=== PATIENT | male | born 1965 | race Caucasian/White ===

== ENCOUNTER 2018-01-12 07:56 | Emergency (ER) | payer OTHER, SELFPAY ==
[2018-01-12 07:58] VITALS: BP 179/90; PULSE 60; RESP 17; TEMP 37.2; O2SAT 95; BMI 37.6
--- NOTE | 2018-01-12 08:17 | ED.VISSUMM ---
- ER Visit Summary Date of Service: 01/12/18 Chief Complaint: Rectal bleeding History of Present Illness: The patient is a 52 M history of hypertension. He has never had GI bleeds. States has a lot of abdominal cramping as a young man he had a colonoscopy at that time which is more than 20 years ago which was negative. States last night he thought he ate explored egg. He had multiple episodes of diarrhea. Said this morning when he went up to go the bathroom he realized it was just bright red blood. Last night when he was going the bathroom it was in the dark and he said he never checked to see what was in the toilet. He denies ever having a GI bleed. He is on no blood thinners. He denies any vomiting or hematemesis. Otherwise he has been healthy lately. Physical Examination: Middle-aged male no acute distress. Vital signs are stable afebrile. H EENT exam unremarkable. Neck nontender no lymphadenopathy. Lungs clear to auscultation bilaterally. Heart regular rhythm no murmur. Abdomen soft, nontender, nondistended normal bowel sounds no peritoneal signs. Rectal exam externally unremarkable. No external hemorrhoids or masses. Internally no masses appreciated. No significant tenderness. There was no stool and no blood. Moving all 4 extremities. Neurovascular intact. No edema. Back exam nontender. Neurologic exam unremarkable. Test Results: H&H is 15.9 and 47. Normal platelets. Chemistry panel unremarkable BUN 29 creatinine 1. Normal gap. Emergency Department Course and Treatment: Patient with reported rectal bleeding. Treatment Plan: Repeat exam at 09 40 patient is doing well. He standing up walking about the room. He and I discussed test results. He has lower GI bleeding it appears to be stable. He did have another episode while in the ER. He absolutely does not want to be admitted. Given that he is not orthostatically hypotensive. He is clinically looks well and his hemoglobin is 15.9 I am okay with him being discharged to home to follow-up next week with your general surgeon or Dr. Nell CALDWELL to get colonoscopy. He knows return if he is feeling worse or has continued or worse bleeding. Disposition: Discharge Impression: Rectal bleeding of uncertain etiology This note was generated with [employer] dictation software. It may contain incorrect words, spelling, and punctuation that were not noted in review of the chart prior to signing ED Disposition - Plan for ED Patient: Chief Complaint: GI Bleed Referrals: Galileo Eaton DO [Primary Care Provider] -
[2018-01-12 08:46] LABS: Absolute Lymphocyte Count 1.15 X10^3/ul (0.83-4.51); Absolute Neutrophil Count 7.6 X10^3/uL (2.0-7.7); Basophil# 0.02 X10^3/uL; Basophil% 0.2 % (0-1); Eosinophil# 0.04 X10^3/uL; Eosinophils% 0.4 % (0-5); Hematocrit 47.5 % (40-54); Hemoglobin 15.9 g/dl (13.0-16.5); Lymphocyte # 1.15 X10^3/ul (4.0); Lymphocyte % 12.1 % (19-41); Mean Corp Hgb Conc 33.5 g/gl (32-36); Mean Corpuscular Volume 89.6 fL (80-94); Mean Platelet Vol. 10.3 fl (6.2-12.0); Monocyte# 0.65 X10^3/uL; Monocyte% 6.8 % (0-10); Neutrophil # 7.63 X10^3/uL (2.7-7.7); Neutrophil % 80.3 % (47-70); Platelet Count 256 K/mm3 (150-450); RBC Distribution Width CV 13.1 % (11.6-14.6); RBC Distribution Width SD 42.9 fl (35.1-43.9); White Blood Count 9.5 K/mm3 (4.4-11.0)
[2018-01-12 08:49] LABS: POSITIVE COUNT NO; POSITIVE DIFFERENTIAL NO; POSITIVE MORPHOLOGY NO
[2018-01-12 08:54] LABS: Anion Gap 9 (5-15); BUN 29 mg/dL (7-18); BUN/Creat Ratio 28.4 RATIO (10-20); Calcium,Total 8.6 mg/dL (8.5-10.1); Chloride 107 mmol/L (98-107); Creatinine, Serum 1.02 mg/dL (0.70-1.30); EST Glomerular Filtration Rate 81 mL/min (>60); Est Glom Filt Rate - Afr Amer 98 mL/min (>60); Estimated Creatinine Clearance 86.48 ml/min; Glucose 133 mg/dL (74-106); Potassium 4.2 mmol/L (3.5-5.1); Sodium Level 141 mmol/L (136-145)
--- NOTE | 2018-01-12 09:43 | ED.DEP ---
ED Disposition - Plan for ED Patient: Disposition: Home or Assisted Living Chief Complaint: GI Bleed Referrals: Irving Camejo MD [STAFF PHYSICIAN] - As soon as possible Mathieu Lowry MD [STAFF PHYSICIAN] - As soon as possible Additional Instructions: Call and follow-up with either Dr. Camejo of GI or one of the local surgeon such as Dr. Lowry to to have a colonoscopy performed next week. Return if increasing bleeding or feeling worse.
== END 2018-01-12 09:58 | disposition home or self-care (01) ==
PROVIDERS: Emergency Provider Emergency Medicine; Family Provider Family Medicine; PCP Family Medicine
DX: K92.2 Gastrointestinal hemorrhage, unspecified (principal); R19.7 Diarrhea, unspecified; I10 Essential (primary) hypertension; Z79.82 Long term (current) use of aspirin; Z79.899 Other long term (current) drug therapy
CPT/HCPCS: 80048; 85025; 99283; A4216

== ENCOUNTER → 2018-01-15 10:41 | Outpatient (CLI) | payer OTHER, SELFPAY ==
--- NOTE | 2018-01-15 10:43 | CT_ITS ---
STUDY: CT ABDOMEN AND PELVIS WITH CONTRAST REASON FOR EXAM: Male, 52 years old. 3 day history of bloody stools. RADIATION DOSAGE (If Supplied By Facility): CTDIvol = ( 13.26 ) mGy, DLP = ( 1082.350 ) mGycm TECHNIQUE: Transaxial images were obtained from the dome of the diaphragm to the symphysis pubis with oral contrast. 100 ml of Isovue 300 contrast was administered. Sagittal and coronal images were reconstructed. Individualized dose optimization techniques were used for this CT. COMPARISON: None. FINDINGS: The visualized lung bases are unremarkable. The visualized portions of the heart are within normal limits. Normal liver. Normal gallbladder and extrahepatic biliary system. Normal spleen. Normal pancreas. Normal bilateral adrenal glands. Normal right kidney. Normal left kidney. There is a small hiatal hernia. Normal small intestine. There is circumferential wall thickening with increased markings in the surrounding peritoneal fat involving the descending colon down to the sigmoid colon. This is in keeping with colitis. Sigmoid diverticulosis. The appendix is visualized and appears normal. Normal abdominal aorta. Normal inferior vena cava. Normal retroperitoneum. Normal urinary bladder. Small bilateral benign-appearing inguinal lymph nodes. Normal abdominal wall. Normal osseous structures. CT/Abdomen/Pelvis WITH Contrast IMPRESSION: Findings in keeping with colitis of the descending colon. Electronically Signed: Artem Milton MD at 13:35 EDT Tel [phone], Service support ,
== END ==
PROVIDERS: Family Provider Family Medicine; PCP Family Medicine; Visit Provider Surgery
DX: K52.9 Noninfective gastroenteritis and colitis, unspecified (principal)
CPT/HCPCS: 74177; Q9967

== ENCOUNTER 2018-02-23 07:34 | Day surgery (SDC) | payer OTHER, SELFPAY ==
[2018-02-23 07:56] VITALS: BP 128/79; PULSE 72; RESP 16; TEMP 36.3; O2SAT 95; BMI 36.3
--- NOTE | 2018-02-23 08:12 | PCM.HP.STD ---
Problem List (1) Colitis Status: Acute History of Present Illness Date of Admission: 02/23/18 The patient is a 52 year old M who had bleeding diarrhea [address] scan revealed colitis of the descending colon. The patient came to my office and after some bowel rest the patient was feeling much better and it spontaneously resolved. He has been having no issues since. He reports no bloody diarrhea or abdominal pain since then. Past Medical History Medical History: Medical History (Last Updated 01/15/18 @ 10:02 by Morena Sin) Rectal bleeding K62.5 HTN (hypertension) I10 Allergies Penicillins Allergy (Verified 02/15/18 09:50) Swelling Home Medications: Ambulatory Orders Medication Instructions Recorded Aspirin [Aspirin, Baby] 81 mg PO DAILY@0800 01/12/18 Losartan Potassium [Cozaar] 50 mg PO DAILY 01/12/18 Surgical History: Surgical History (Last Updated 01/15/18 @ 10:04 by Morena Sin) H/O BICEP REPAIR LEFT History of deviated nasal septum Z87.09 Surgical History: no surgical history Smoking Status: Former smoker Tobacco Use: Non-smoker - *Family History Maternal Family History: Family History (Last Updated 01/15/18 @ 10:04 by Morena Sin) Brother Hypertension Cancer Father Hypertension Review of Systems Constitutional: Denies: Anorexia, Chills HEENT: Denies: Difficulty Swallowing Cardiovascular: Denies: Chest Pain Respiratory: Denies: Cough Gastrointestinal: Denies: Abdominal Pain, Diarrhea, Hematochezia, Nausea, Vomiting Genitourinary: Denies: Dysuria Musculoskeletal: Denies: Joint Tenderness Skin: Denies: Jaundice VTE Information - Inpt Only VTE Present on Admission: No Patient Problems: Active and Suspected Problems (Last Updated 01/15/18 @ 10:02 by Morena Sin) Colitis (Acute) - Physical Exam General: Alert, Oriented x3, Cooperative, No apparent distress HEENT: Atraumatic Lungs: Normal air movement Cardiovascular: Regular rate, Regular Rhythm, Normal S1 Abdomen: Soft, Non Tender, Non-Distended Vital Signs Temp Pulse Resp BP Pulse Ox 97.4 F L 72 16 128/79 H 95 02/23/18 07:56 02/23/18 07:56 02/23/18 07:56 02/23/18 07:56 02/23/18 07:56 Oxygen Delivery Method Room Air Weight: 253 lb 12.033 oz Body Mass Index (BMI) 36.3 Assessment/Plan All Active Problems (Last Updated 01/15/18 @ 10:02 by Morena Sin) Colitis (Acute) 52-year-old male with history of colitis and bloody diarrhea 1. I recommend the patient undergo a colonoscopy due to the colitis to ensure that it is not another etiology besides infectious as well as the fact that he is over 49 and has not had a colonoscopy in 20 years. 2. I explained endoscopy in detail to the patient. I explained the risks including but not limited to stroke or heart attack with anesthesia, perforation of the GI tract, bleeding, infection. I explained that any of these could necessitate further emergency surgery. The patient understands and all questions were answered sufficiently. The patient wishes to proceed with procedure. Mathieu Lowry MD Pager: [facility] [address] [place] [address], [address] [place] [address] Office:
--- NOTE | 2018-02-23 08:16 | HP.PCM_ITS ---
Problem List (1) Colitis Status: Acute History of Present Illness Date of Admission: 02/23/18 The patient is a 52 year old M who had bleeding diarrhea [address] scan revealed colitis of the descending colon. The patient came to my office and after some bowel rest the patient was feeling much better and it spontaneously resolved. He has been having no issues since. He reports no bloody diarrhea or abdominal pain since then. Past Medical History Medical History: Medical History (Last Updated 01/15/18 @ 10:02 by Morena Sin) Rectal bleeding K62.5 HTN (hypertension) I10 Allergies Penicillins Allergy (Verified 02/15/18 09:50) Swelling Home Medications: Ambulatory Orders Medication Instructions Recorded Aspirin [Aspirin, Baby] 81 mg PO DAILY@0800 01/12/18 Losartan Potassium [Cozaar] 50 mg PO DAILY 01/12/18 Surgical History: Surgical History (Last Updated 01/15/18 @ 10:04 by Morena Sin) H/O BICEP REPAIR LEFT History of deviated nasal septum Z87.09 Surgical History: no surgical history Smoking Status: Former smoker Tobacco Use: Non-smoker - *Family History Maternal Family History: Family History (Last Updated 01/15/18 @ 10:04 by Morena Sin) Brother Hypertension Cancer Father Hypertension Review of Systems Constitutional: Denies: Anorexia, Chills HEENT: Denies: Difficulty Swallowing Cardiovascular: Denies: Chest Pain Respiratory: Denies: Cough Gastrointestinal: Denies: Abdominal Pain, Diarrhea, Hematochezia, Nausea, Vomiting Genitourinary: Denies: Dysuria Musculoskeletal: Denies: Joint Tenderness Skin: Denies: Jaundice VTE Information - Inpt Only VTE Present on Admission: No Patient Problems: Active and Suspected Problems (Last Updated 01/15/18 @ 10:02 by Morena Sin) Colitis (Acute) - Physical Exam General: Alert, Oriented x3, Cooperative, No apparent distress HEENT: Atraumatic Lungs: Normal air movement Cardiovascular: Regular rate, Regular Rhythm, Normal S1 Abdomen: Soft, Non Tender, Non-Distended Vital Signs Temp Pulse Resp BP Pulse Ox 97.4 F L 72 16 128/79 H 95 02/23/18 07:56 02/23/18 07:56 02/23/18 07:56 02/23/18 07:56 02/23/18 07:56 Oxygen Delivery Method Room Air Weight: 253 lb 12.033 oz Body Mass Index (BMI) 36.3 Assessment/Plan All Active Problems (Last Updated 01/15/18 @ 10:02 by Morena Sin) Colitis (Acute) 52-year-old male with history of colitis and bloody diarrhea 1. I recommend the patient undergo a colonoscopy due to the colitis to ensure that it is not another etiology besides infectious as well as the fact that he is over 49 and has not had a colonoscopy in 20 years. 2. I explained endoscopy in detail to the patient. I explained the risks including but not limited to stroke or heart attack with anesthesia, perforation of the GI tract, bleeding, infection. I explained that any of these could necessitate further emergency surgery. The patient understands and all questions were answered sufficiently. The patient wishes to proceed with procedure. Mathieu Lowry MD Pager: [facility] [address] [place] [address], [address] [place] [address] Office:
--- NOTE | 2018-02-23 08:43 | PCM.OPRPT ---
Problem List (1) Colitis Status: Acute Report of Operation Date of Procedure: 02/23/18 Pre-Operative Diagnosis: Colitis Post-Operative Diagnosis: Normal colonoscopy Surgery/Procedure Performed:: Colonoscopy Description of Procedure: The major risks and benefits associated with the procedure were explained to the patient in detail. The patient verbalized understanding and agreement with the same. The patient was brought to the endoscopy suite. After adequate sedation was achieved, the patient was placed in the left lateral decubitus position and a digital rectal exam was performed. This examination was within normal limits. A well-lubricated colonoscope was then inserted into the rectum and advanced under direct visualization to the level of the cecum. The bowel prep was good. The cecum was identified by both visual and anatomic landmarks. A photograph was taken of the end of the cecum. The scope was then fully withdrawn while examining the color, texture, anatomy and integrity of the mucosa from the cecum to the anal canal. The findings were consistent with normal colonic mucosa. Over 6 minutes were taken to examine the colonic mucosa. There was no thickening of the descending colon with a colitis was located. The mucosa appeared normal. Upon reaching the rectum the scope was retroflexed to examine the distal rectal vault. The scope was then straightened and was completely retrieved upon exiting the anal canal and the procedure was terminated. The patient was then transferred to the recovery room in stable condition. Recommendations for follow up: Repeat screening colonoscopy in 10 years
[2018-02-23 08:45] VITALS: BP 122/61; BP 128/79; PULSE 73; RESP 18; TEMP 36.2; O2SAT 96
[2018-02-23 08:50] VITALS: BP 121/74; BP 128/79; PULSE 63; RESP 16; O2SAT 96
[2018-02-23 08:55] VITALS: BP 128/79; BP 131/78; PULSE 62; RESP 16; O2SAT 96
[2018-02-23 09:00] VITALS: BP 128/79; BP 129/74; PULSE 65; RESP 18; TEMP 36.4; O2SAT 96
[2018-02-23 09:14] VITALS: BP 128/79
== END 2018-02-23 09:15 | disposition home or self-care (01) ==
LOC: EN 07:35 → AC 07:36
PROVIDERS: Family Provider Family Medicine; PCP Family Medicine; Visit Provider Surgery
PROC: 0DJD8ZZ Inspection of Lower Intestinal Tract, Via Natural or Artificial Opening Endoscopic (ICD-10-PCS; CPT 45378; principal; 2018-02-23 08:25)
DX: K52.9 Noninfective gastroenteritis and colitis, unspecified (principal); K58.9 Irritable bowel syndrome, unspecified; K62.5 Hemorrhage of anus and rectum; I10 Essential (primary) hypertension; Z79.82 Long term (current) use of aspirin; Z79.899 Other long term (current) drug therapy; Z87.11 Personal history of peptic ulcer disease; Z87.891 Personal history of nicotine dependence
CPT/HCPCS: 45378; J7120

== ENCOUNTER → 2018-05-23 15:35 | Outpatient (CLI) | payer OTHER, SELFPAY | PROVIDERS: Family Provider Family Medicine; PCP Family Medicine; Referring Provider Family Medicine; Visit Provider Family Medicine | DX: Z80.42 Family history of malignant neoplasm of prostate (principal) | CPT/HCPCS: 36415; 84153; G0103 ==

== ENCOUNTER → 2019-05-01 09:03 | Outpatient (CLI) | payer OTHER, SELFPAY ==
[2019-05-01 08:48] VITALS: BMI 37.0
[2019-05-01 13:15] LABS: Anion Gap 5 (5-15); BUN 21 mg/dL (7-18); Calcium,Total 8.7 mg/dL (8.5-10.1); Chloride 109 mmol/L (98-107); Cholesterol 194 mg/dL (200); Creatinine, Serum 1.05 mg/dL (0.70-1.30); EST Glomerular Filtration Rate 78 mL/min (>60); Est Glom Filt Rate - Afr Amer 95 mL/min (>60); Glucose 108 mg/dL (74-106); High Density Lipoprotein 53 mg/dL; Potassium 3.9 mmol/L (3.5-5.1); Sodium Level 142 mmol/L (136-145); Triglycerides 91 mg/dL; Very Low Density Lipoprotein 18 mg/dL (5-40)
== END ==
PROVIDERS: Family Provider Family Medicine; PCP Family Medicine; Visit Provider Family Medicine
DX: I10 Essential (primary) hypertension (principal)
CPT/HCPCS: 36415; 80048; 80061

== ENCOUNTER → 2020-05-07 12:05 | Outpatient (CLI) | payer OTHER, SELFPAY ==
[2020-05-07 11:36] VITALS: BMI 37.0
[2020-05-07 16:03] LABS: ALB/GLOB Ratio 1.1 RATIO (0.9-2.4); AST(SGOT) 18 U/L (15-37); Alanine Aminotransfer ALT/SGPT 41 U/L (16-61); Albumin, Serum 3.9 g/dL (3.2-5.0); Alkaline Phosphatase 58 U/L (45-117); Anion Gap 6 (5-15); BUN 17 mg/dL (7-18); BUN/Creat Ratio 17.7 RATIO (10-20); Calcium,Total 8.9 mg/dL (8.5-10.1); Chloride 107 mmol/L (98-107); Creatinine, Serum 0.96 mg/dL (0.70-1.30); EST Glomerular Filtration Rate 86 mL/min (>60); Est Glom Filt Rate - Afr Amer 105 mL/min (>60); Globulin 3.7 g/dL (2.2-4.2); Glucose 97 mg/dL (74-106); PSA,Total- Diagnostic 1.42 ng/mL (0.0-4.0); Protein, Total 7.6 g/dL (6.4-8.2); Sodium Level 141 mmol/L (136-145)
== END ==
PROVIDERS: PCP Family Medicine; Referring Provider Family Medicine; Visit Provider Family Medicine
DX: I10 Essential (primary) hypertension (principal)
CPT/HCPCS: 36415; 80053; 84153

== ENCOUNTER → 2021-05-28 10:33 | Outpatient (CLI) | payer OTHER, SELFPAY ==
[2021-05-28 12:44] LABS: Anion Gap 3 (5-15); BUN 14 mg/dL (7-18); BUN/Creat Ratio 14.6 RATIO (10-20); Chloride 108 mmol/L (98-107); Creatinine, Serum 0.96 mg/dL (0.70-1.30); EST Glomerular Filtration Rate 86 mL/min (>60); Est Glom Filt Rate - Afr Amer 104 mL/min (>60); Glucose 118 mg/dL (74-106); PSA,Total- Diagnostic 1.26 ng/mL (0.0-4.0); Potassium 4.4 mmol/L (3.5-5.1); Sodium Level 140 mmol/L (136-145)
== END ==
PROVIDERS: PCP Family Medicine; Referring Provider Family Medicine; Visit Provider Family Medicine
DX: I10 Essential (primary) hypertension (principal); Z80.42 Family history of malignant neoplasm of prostate; R53.83 Other fatigue
CPT/HCPCS: 36415; 80048; 84153; 84403

== ENCOUNTER → 2023-03-23 | Outpatient (CLI) | payer MEDICAID, SELFPAY ==
[2023-03-23 14:17] LABS: ALB/GLOB Ratio 1.2 RATIO (0.9-2.4); AST(SGOT) 19 U/L (15-37); Alanine Aminotransfer ALT/SGPT 47 U/L (16-61); Albumin, Serum 3.7 g/dL (3.2-5.0); Alkaline Phosphatase 53 U/L (45-117); Anion Gap 6 (5-15); BUN 14 mg/dL (7-18); BUN/Creat Ratio 14.2 RATIO (10-20); Calcium,Total 8.7 mg/dL (8.5-10.1); Chloride 108 mmol/L (98-107); Cholesterol 219 mg/dL (200); Creatinine, Serum 0.99 mg/dL (0.70-1.30); EST Glomerular Filtration Rate 83 mL/min (>60); Est Glom Filt Rate - Afr Amer 100 mL/min (>60); Globulin 3.1 g/dL (2.2-4.2); Glucose 113 mg/dL (74-106); High Density Lipoprotein 58 mg/dL; PSA,Total - Annual Screen 1.77 ng/mL (0.00-4.00); Potassium 4.3 mmol/L (3.5-5.1); Protein, Total 6.8 g/dL (6.4-8.2); Sodium Level 142 mmol/L (136-145); Triglycerides 107 mg/dL; Very Low Density Lipoprotein 21 mg/dL (5-40)
== END | disposition home or self-care (01) ==
LOC: BIMLAB 10:27
PROVIDERS: PCP Family Medicine; Referring Provider Family Medicine; Visit Provider Family Medicine
DX: I10 Essential (primary) hypertension (principal); Z12.5 Encounter for screening for malignant neoplasm of prostate; Z80.42 Family history of malignant neoplasm of prostate
CPT/HCPCS: 36415; 80053; 80061; 84153; G0103

== ENCOUNTER → 2024-05-28 | Outpatient (CLI) | payer MEDICAID, SELFPAY ==
[2024-05-28 15:35] LABS: ALB/GLOB Ratio 0.9 RATIO (0.9-2.4); AST(SGOT) 16 U/L (15-37); Alanine Aminotransfer ALT/SGPT 39 U/L (16-61); Albumin, Serum 3.7 g/dL (3.2-5.0); Alkaline Phosphatase 56 U/L (45-117); Anion Gap 6 (5-15); BUN 14 mg/dL (7-18); BUN/Creat Ratio 13.9 RATIO (10-20); Calcium,Total 9.4 mg/dL (8.5-10.1); Chloride 108 mmol/L (98-107); Cholesterol 255 mg/dL (200); Creatinine, Serum 1.01 mg/dL (0.70-1.30); EST Glomerular Filtration Rate 80 mL/min (>60); Est Glom Filt Rate - Afr Amer 97 mL/min (>60); Glucose 107 mg/dL (74-106); High Density Lipoprotein 61 mg/dL; PSA,Total- Diagnostic 2.13 ng/mL (0.0-4.0); Potassium 3.9 mmol/L (3.5-5.1); Protein, Total 7.7 g/dL (6.4-8.2); Sodium Level 142 mmol/L (136-145); Triglycerides 111 mg/dL; Very Low Density Lipoprotein 22 mg/dL (5-40)
== END | disposition home or self-care (01) ==
LOC: BIMLAB 13:50
PROVIDERS: PCP Family Medicine; Referring Provider Family Medicine; Visit Provider Family Medicine
DX: I10 Essential (primary) hypertension (principal); Z80.42 Family history of malignant neoplasm of prostate
CPT/HCPCS: 36415; 80053; 80061; 84153

== ENCOUNTER → 2024-09-11 | Outpatient (CLI) | payer MEDICAID, SELFPAY | END | disposition home or self-care (01) | LOC: BIMLAB 14:24 | PROVIDERS: PCP Family Medicine; Referring Provider Family Medicine; Visit Provider Family Medicine | DX: R53.83 Other fatigue (principal) | CPT/HCPCS: 36415; 84403 ==

== ENCOUNTER → 2025-07-30 | Outpatient (CLI) | payer MEDICAID, SELFPAY ==
[2025-07-30 18:04] LABS: AST(SGOT) 21 U/L (<=37); Alanine Aminotransfer ALT/SGPT 27 U/L (<=46); Albumin, Serum 4.3 g/dL (3.4-4.8); Alkaline Phosphatase 55 U/L (40-129); Anion Gap 12 (5-15); BUN 15 mg/dL (4-19); BUN/Creat Ratio 14.2 RATIO (10-20); Calcium,Total 9.4 mg/dL (7.6-11.0); Carbon Dioxide 25.3 mmol/L (21.0-32.0); Chloride 104 mmol/L (98-108); Cholesterol 248 mg/dL (<=200); Globulin 3.0 g/dL (2.2-4.2); Glucose 103 mg/dL (70-99); Low Density Lipoprotein Calc. 184 mg/dL; Potassium 4.2 mmol/L (3.3-5.1); Triglycerides 103 mg/dL; Very Low Density Lipoprotein 21 mg/dL (5-40); cholesterol:hdl ratio screen 5.43
== END | disposition home or self-care (01) ==
LOC: MTLAB 15:35
PROVIDERS: PCP Family Medicine; Referring Provider Family Medicine; Visit Provider Family Medicine
DX: Z00.00 Encounter for general adult medical examination without abnormal findings (principal)
CPT/HCPCS: 36415; 80053; 80061